=== PATIENT | male | born 1995 | race Hispanic/Latino ===

== ENCOUNTER 2021-06-08 12:35 | Emergency (ER) | payer SELFPAY ==
[~2021-06-08] VITALS: Ht 167.6 cm; Wt 67.1 kg
[2021-06-08] MEDS ORDERED: LEVE-43 PO (15:20)
[2021-06-08] MEDS ORDERED: LEVETIRACETAM 500 MG TABLET PO SCH (15:30)
[2021-06-08 16:10] VITALS: BP 120/65
== END 2021-06-08 16:14 | disposition home or self-care (01) ==
LOC: EDH 12:35
DX: S00.93XA Contusion of unspecified part of head, initial encounter (principal); R56.9 Unspecified convulsions; F12.90 Cannabis use, unspecified, uncomplicated; F17.200 Nicotine dependence, unspecified, uncomplicated; W18.39XA Other fall on same level, initial encounter; Y93.89 Activity, other specified; Y92.89 Other specified places as the place of occurrence of the external cause; Y99.8 Other external cause status
CPT/HCPCS: 70450